=== PATIENT | male | born 1955 | race Caucasian/White ===

== ENCOUNTER → 2016-06-20 | Outpatient (CLI) | payer MEDICARE, BC | LOC: MRI 09:13 | DX: C15.5 Malignant neoplasm of lower third of esophagus (principal); C77.8 Secondary and unspecified malignant neoplasm of lymph nodes of multiple regions; R59.9 Enlarged lymph nodes, unspecified | CPT/HCPCS: 70553; A9577 ==

== ENCOUNTER 2016-07-21 11:29 | Emergency (ER) | payer MEDICARE, BC ==
[2016-07-21 12:21] LABS: HEMOGLOBIN 9.3 gm/dl (14.0-17.5); RED BLOOD COUNT 3.35 M/UL (4.20-5.50); WHITE BLOOD COUNT 10.1 K/UL (4.5-11.0)
[2016-07-21 12:36] LABS: BUN/CREATININE RATIO 33 (0-10)
== END 2016-07-21 16:00 | disposition home or self-care (01) ==
LOC: ER1 11:29
PROVIDERS: Family Medicine
DX: K56.60 Unspecified intestinal obstruction (principal); C15.9 Malignant neoplasm of esophagus, unspecified; C78.00 Secondary malignant neoplasm of unspecified lung; J90 Pleural effusion, not elsewhere classified; Z79.891 Long term (current) use of opiate analgesic; Z79.899 Other long term (current) drug therapy
CPT/HCPCS: 36415; 80053; 83690; 85025; 96361; 96374; 99285; J2405